=== PATIENT | female | born 2000 | race Two or more races ===

== ENCOUNTER 2023-03-22 12:29 | Outpatient (CLI) | payer BC, SELFPAY | END 2023-03-22 12:30 | disposition home or self-care (01) | LOC: NFLDREF 03-23 11:40 | PROVIDERS: Visit Provider Family Medicine | DX: F41.9 Anxiety disorder, unspecified (principal); Z79.899 Other long term (current) drug therapy; G47.00 Insomnia, unspecified; F42.9 Obsessive-compulsive disorder, unspecified; F90.9 Attention-deficit hyperactivity disorder, unspecified type; F32.A Depression, unspecified | CPT/HCPCS: 80053; 82306; 84443 ==